=== PATIENT | male | born 1940 | race Caucasian/White ===

== ENCOUNTER 2019-10-28 10:00 | Observation (INO) | payer MEDICARE ==
[~2019-10-28] VITALS: Ht 176.5 cm; Wt 108.4 kg
[2019-10-28 09:37] LABS: EOSINOPHILS % (AUTO) 3.9 % (0.0-8.0); LYMPHOCYTES % (AUTO) 21.5 % (21.0-51.0); MEAN CORPUSCULAR HEMOGLOBIN 29.6 pg (27.0-33.0); MEAN CORPUSCULAR HGB CONC 32.4 g/dL (32.0-36.0); MEAN CORPUSCULAR VOLUME 91.5 fL (79-99); NEUTROPHILS % (AUTO) 60.9 % (40.0-77.0); PLATELET COUNT (AUTO) 254 K/uL (130-400); RED BLOOD CELL COUNT(AUTO) 4.59 MIL/uL (4.50-6.20); RED CELL DISTRIBUTION WIDTH 17.6 % (11.0-15.5); WHITE BLOOD COUNT (AUTO) 9.6 K/uL (4.8-10.8)
[2019-10-28 09:46] VITALS: BP 141/83
[2019-10-28 09:49] LABS: CREATININE 1.1 mg/dL (0.5-1.5); POTASSIUM 4.4 mmol/L (3.5-5.1)
[~2019-10-28 10:00] MED LIST: GLUC100019 PO; MULT-40 PO
[2019-10-28] MEDS ORDERED: MUPI22OI2 TP (10:22)
[2019-10-28] MEDS ORDERED: [UNRECOGNIZED DRUG - OTHER] PO (10:22)
[2019-10-28] MEDS ORDERED: ELDERBERRY PO (10:22)
[2019-10-28] MEDS ORDERED: AZEL30CR TP (10:22)
[2019-10-28] MEDS ORDERED: OMEP40CA13 PO (10:22)
[2019-11-01] VITALS (23 sets, daily range): BP systolic 111–153; BP diastolic 59–83
[2019-11-01] MEDS: CEFAZOLIN SODIUM 1 GM VIAL IVP SCH ×2 (05:00→08:00)
[2019-11-01] MEDS ORDERED: LACTATED RINGERS 1000ML 1,000 ML IV ONE (06:19)
[2019-11-01] MEDS ORDERED: CEFAZOLIN SODIUM 1 GM VIAL ONE (06:47)
[2019-11-01] MEDS ORDERED: BUPIVACAINE/EPI/PF 0.25% 30ML VIAL IJ ONE (06:47)
[2019-11-01] MEDS ORDERED: THROMBIN-JMI 20000 UNIT KIT TP ONE (06:48)
[2019-11-01] MEDS ORDERED: DURAMORPH PF1 MG/ML 10ML AMP IV ONE (06:48)
[2019-11-01] MEDS ORDERED: DEXAMETHASONE SOD PHOSPHATE 10MG/ML 1ML VIAL ONE (07:02)
[2019-11-01] MEDS ORDERED: SUCCINYLCHOLINE 200MG/10ML SYR ONE (07:02)
[2019-11-01] MEDS ORDERED: LIDOCAINE PF 2% 5ML ABBOJECT ONE (07:02)
[2019-11-01] MEDS ORDERED: MIDAZOLAM HCL 1 MG/ML 2ML VIAL ONE ×2 (07:03→11:05)
[2019-11-01] MEDS ORDERED: GLYCOPYRROLATE 1 MG/5 ML SYRINGE ONE (07:03)
[2019-11-01] MEDS ORDERED: PROPOFOL 10 MG/ML 20ML VIAL IV ONE (07:03)
[2019-11-01] MEDS ORDERED: FENTANYL CITRATE PF 50 MCG/1 ML 2ML VIAL ONE ×2 (07:03→08:42)
[2019-11-01] MEDS ORDERED: NEOSTIGMINE 5MG/5ML SYR IV ONE (07:03)
[2019-11-01] MEDS ORDERED: ONDANSETRON HCL 4 MG/2 ML VIAL ONE (07:03)
[2019-11-01] MEDS ORDERED: ROCURONIUM 10MG/1ML SYR 10 MG/ML ML ONE (07:03)
[2019-11-01] MEDS ORDERED: PHENYLEPHRINE HCL 10 MG/ML 1ML VIAL IV ONE (07:06)
[2019-11-01] MEDS ORDERED: EPHEDRINE SULFATE 50 MG/ML AMPULE ONE (08:44)
[2019-11-01] MEDS ORDERED: MORPHINE SULFATE 2 MG/ML 1ML SYG IVP PRN (10:45)
[2019-11-01] MEDS ORDERED: MUPIROCIN OINTMENT 22 GM TUBE TP SCH (10:45)
[2019-11-01] MEDS ORDERED: SODIUM CHLORIDE 0.9% 10 ML VIAL IVP PRN (10:45)
[2019-11-01] MEDS ORDERED: PROMETHAZINE HCL 25 MG/ML 1ML AMPULE IM PRN (10:45)
--- NOTE | 2019-11-01 12:00 | NUR ---
NOTE ARRIVED FROM PACU AT THIS TIME. UNDERWENT SURGERY WITH DR JETER FOR LOWER BACK PAIN RADIATING TO RIGHT LEG. LUMBAR LAMINECTOMY DONE. DRESSING TO LOWER BACK D/I. CLAUDIA DRAIN PRESENT BUT HAS NOT BEEN ACTIVATED YET. PATIENT DROWSY BUT ANSWERS QUESTIONS APPROPRIATELY AND DNEIES PAIN AT THIS TIME. NO NUMBNESS OR TINGLING TO DISTAL LE. BBS CLEAR. HE IS ON O2@2LNC POST OP. F/C YELLOW URINE. HE COMPLAINS ABOUT THIS THE MOST. REPORTS HE FEELS LIKE HE NEEDS TO VOID.
[2019-11-01] MEDS: DEXAMETHASONE SOD PHOSPHATE 4 MG/ML 1ML VIAL IVP SCH ×3 (12:18→23:30)
[2019-11-01] MEDS: LACTATED RINGERS 1000ML 1,000 ML IV SCH ×2 (12:18→23:30)
[2019-11-01] MEDS: HYDROCODONE/ACETAMINOPHEN 5/325 MG TAB PO PRN ×2 (14:16→21:40)
[2019-11-01] MEDS ORDERED: CEFAZOLIN SODIUM 1 GM VIAL IVP SCH (16:00)
--- NOTE | 2019-11-01 17:18 | NUR ---
CM NOTE met w patient and 'lady friend' (as per patient) at bedside for dc planning- pt here for short stay scheduled inpatient porcedure, is aaox3, independnet, no dme, dirves, lives alone, but will have support of friends. no dc concerns, no triggers to cm-- detialed cm assessment deferred at this time Addendum: 11/03/19 at 0858 by EKATERINA YOU RN CM Amended: Links added.
--- NOTE | 2019-11-01 21:30 | NUR ---
AMBULATING PER MD ORDER PT UP OOB AMBULATING ALONG THE HALLWAY. STEADY GAIT OBSERVED, HAND HELD ASSISTANCE USED, NO C/O HEADACHE OR DIZZINESS. NO C/O PAIN OR DISCOMFORT AT THIS TIME. DRESSING TO LOWER BACK DRY AND INTACT, CLAUDIA DRAIN TO SUCTION. WILL CONTINUE TO MONITOR.
--- NOTE | 2019-11-01 22:30 | NUR ---
AMBULATING PT OOB AMBULATING ALONG THE HALLWAY. STEADY GAIT OBSERVED, HAND HELD ASSISTANCE USED, NO C/O DIZZINESS, NO C/O PAIN OR DISCOMFORT AT THIS TIME. DRESSING TO LOWER BACK DRY AND INTACT, CLAUDIA DRAIN TO SUCTION. WILL CONTINUE TO MONITOR.
[2019-11-02 00:28] VITALS: BP 118/68
[2019-11-02 04:28] VITALS: BP 130/67
[2019-11-02] MEDS: DEXAMETHASONE SOD PHOSPHATE 4 MG/ML 1ML VIAL IVP SCH (04:38)
[2019-11-02 08:22] VITALS: BP 130/70
[2019-11-02] MEDS ORDERED: PANTOPRAZOLE SODIUM 40 MG TABLET.DR PO SCH (09:00)
[2019-11-02] MEDS ORDERED: NIACINAMIDE TP SCH (09:00)
[2019-11-02] MEDS ORDERED: AZELAIC ACID TP SCH (09:00)
[2019-11-02] MEDS ORDERED: GLUCOSAMINE SULFATE 500 MG PO SCH (09:00)
[2019-11-02] MEDS ORDERED: MULTIVITAMIN TABLET PO SCH (09:00)
--- NOTE | 2019-11-02 09:30 | NUR ---
DISCHARGE/ CLAUDIA DRAIN D/C PATIENT GIVEN DISCHARGE INSTRUCTIONS AND EDUCATION ON FOLLOW UP APPOINTMENTS, NEW PRESCRIBED RX (TORADOL), ACTIVITY, SHOWERING, PAIN CONTROL AND S/S OF INFECTION. PATIENT VERBALIZED UNDERSTANDING OF ALL EDUCATION GIVEN VIA TEACH BACK, REFERENCE MATERIAL PROVIDED. IV DISCONTINUED, CATHETER INTACT. NO CONCERNS VOICED. NO DISTRESS NOTED UPON DISCHARGE. PATIENT LEFT VIA WHEELCHAIR TO PRIVATE CAR, [facility] AND FRIEND AT SIDE. ALL BELONGINGS TAKEN WITH. CLAUDIA DRAIN REMOVED. TIP OF CATHETER INTACT. GAUZE AND TAPE APPLIED. PATIENT TOLERATED WELL. INCISION CARE DONE PER SIX ORDERS. 21 STAPLED COUNTED. NO REDNESS, OOZING OR SWELLING NOTED. CLEANSED SITE WITH IODINE , GAUZE AND TAPE APPLIED TO SITE. PT INSTRUCTED ON NOT TO GET DRESSING WET.
--- NOTE | 2019-11-02 13:24 | NUR ---
1100 not able to give patient TAY Letter,patient was already discharged when I went into the room.
== END 2019-11-02 09:57 | disposition home or self-care (01) ==
LOC: DAHIP 11-01 05:30 → EDSTATUS 11-01 10:00 → 4BH 11-01 11:41
PROVIDERS: ADMIT Neurological Surgery; ATTEND Neurological Surgery
DX: M48.061 Spinal stenosis, lumbar region without neurogenic claudication (principal)
CPT/HCPCS: 36415; 63047; 63048; 72020; 80048; 85025; 96374; 96375; 96376 ×2; A4213; A4215; A4216; A4222; A4223 ×2; A4344; A4510; A4600; A4649 ×4; A4663; A6260; G0378 ×21; J0330; J0690 ×3; J1100 ×5; J2001; J2250 ×2; J2274; J2370; J2405; J2704; J2710; J3010 ×2; J3490 ×3; J7030; J7120 ×3

== ENCOUNTER → 2020-02-08 | Outpatient (CLI) | payer MEDICARE ==
[~2020-02-08] MED LIST changes: +AZEL30CR TP; +ELDERBERRY PO; +MUPI22OI2 TP; +OMEP40CA13 PO; +[UNRECOGNIZED DRUG - OTHER] PO
== END | disposition home or self-care (01) ==
LOC: RAH 11:33
PROVIDERS: ATTEND Urology
DX: N28.1 Cyst of kidney, acquired (principal)
CPT/HCPCS: 76770